=== PATIENT | female | born 1960 | race Caucasian/White ===

== ENCOUNTER 2018-03-02 06:23 | Inpatient (IN) | payer BC ==
[2018-03-02] MEDS: LACTATED RINGER'S 1,000 ML IV* (06:00)
[2018-03-02] MEDS ORDERED: EPHEDrine SULFATE 50 MG/5 ML SYG (07:00)
[2018-03-02] MEDS ORDERED: FENTAnyl 50 MCG/ML VIAL (10:00)
[2018-03-02] MEDS ORDERED: MIDAZOLAM 1 MG/ML 2 ML INJ ×2 (10:00)
[2018-03-02] MEDS ORDERED: PROPOFOL 100 ML ×2 (10:00→11:54)
[2018-03-02] MEDS ORDERED: BUPIVACAINE 0.75%/DEXT (SPINAL) 2 ML INJ (10:01)
[2018-03-02] MEDS: TRANEXAMIC ACID 1,000 MG in NS 100 ML PRE-OP X1 IVPB (11:30)
[2018-03-02] MEDS: CEFAZOLIN 2 GM/50 ML (PMX) 50 ML IVPB (11:30)
[2018-03-02] MEDS ORDERED: KETOROLAC 30 MG INJ (11:36)
[2018-03-02] MEDS ORDERED: ONDANSETRON 4 MG INJ (11:36)
[2018-03-02] MEDS ORDERED: DEXAMETHASONE 4 MG/ML 1 ML INJ (11:36)
[2018-03-02] MEDS ORDERED: CEFAZOLIN 1 GM INJ (11:36)
[2018-03-02] MEDS ORDERED: METOCLOPRAMIDE 10 MG INJ (11:36)
[2018-03-02] MEDS ORDERED: ACETAMINOPHEN 1000MG/100ML IV 100 ML (11:38)
[2018-03-02] MEDS ORDERED: PHENYLephrine (100 MCG/ML) 5ML SYG (11:48)
[2018-03-02] MEDS: TRANEXAMIC ACID 1,000 MG in NS 100 ML INTRA-OP X1 IVPB (12:00)
[2018-03-02] MEDS ORDERED: DIPHENHYDRAMINE 50 MG INJ IV (12:00)
[2018-03-02] MEDS ORDERED: NALOXONE (0.4 MG/ML) INJ IV (12:00)
[2018-03-02] MEDS ORDERED: SENNA/DOCUSATE NA (8.6MG/50MG) TAB PO (12:00)
[2018-03-02] MEDS ORDERED: BISACODYL 10 MG SUPP PR (12:00)
[2018-03-02] MEDS ORDERED: oxyCODONE 5 MG TAB PO ×3 (12:00)
[2018-03-02] MEDS ORDERED: BETHANECHOL 25 MG TAB PO (12:00)
[2018-03-02] MEDS ORDERED: ZOLPIDEM 5 MG TAB PO (12:00)
[2018-03-02] MEDS ORDERED: NACL 0.9% 3 ML SYG IV ×2 (12:00→16:00)
[2018-03-02] MEDS ORDERED: NA PHOSPHATE/BIPHOS 133 ML ENEMA PR (12:00)
[2018-03-02] MEDS ORDERED: MAGNESIUM HYDROXIDE 30ML CUP PO (12:00)
[2018-03-02] MEDS ORDERED: KETOROLAC 15 MG INJ IV (12:00)
[2018-03-02] MEDS: POLYMYXIN B 500000 UNIT INJ IRR (12:14)
[2018-03-02] MEDS: BACITRACIN 50000 UNITS INJ IRR (12:14)
[2018-03-02] MEDS: CEFAZOLIN 1 GM/50 ML (PMX) 50 ML IVPB ×2 (14:17→20:14)
[2018-03-02] MEDS: DOCUSATE SODIUM 100 MG CAP PO (14:17)
[2018-03-02] MEDS: ONDANSETRON 4 MG INJ IV ×3 (14:18→23:26)
[2018-03-02] MEDS: ASPIRIN (EC) 325 MG TAB PO (14:18)
[2018-03-02] MEDS: SOD CHLORIDE 0.9% 1,000 ML IV (14:19)
[2018-03-02] MEDS: GABAPENTIN 100 MG CAP PO (20:11)
[2018-03-03] MEDS: SOD CHLORIDE 0.9% 1,000 ML IV ×2 (00:12→12:32)
[2018-03-03] MEDS: CEFAZOLIN 1 GM/50 ML (PMX) 50 ML IVPB (04:26)
[2018-03-03 05:15] LABS: ADD MAN DIFF? NO
[2018-03-03 05:24] LABS: BASOPHILS % 0.1 % (0.0-2.0); HEMATOCRIT 23.6 % (37.0-47.0); HEMOGLOBIN 7.9 g/dl (12.0-16.0); LYMPHOCYTES # 1.1 10^3/ul (0.8-2.9); LYMPHOCYTES % 8.5 % (15.0-51.0); MEAN CORPUSCULAR HGB CONC 33.5 g/dl (32.0-37.0); MEAN CORPUSCULAR VOLUME 95.5 fl (82.0-101.0); MEAN PLATELET VOLUME 10.9 fl (7.4-10.4); MONOCYTE # 1.2 10^3/ul (0.3-0.9); MONOCYTES % 8.9 % (0.0-11.0); NEUTROPHIL # 10.7 10^3/ul (1.6-7.5); NEUTROPHILS % 82.3 % (39.0-77.0); PLATELET COUNT 189 10^3/UL (140-415); RED BLOOD COUNT 2.47 10^6/ul (4.20-5.40); RED CELL DISTRIBUTION WIDTH 12.5 % (11.5-14.5)
[2018-03-03 05:36] LABS: HEMOGLOBIN A1C 5.6 % (0-5.9)
[2018-03-03 05:37] LABS: ALANINE AMINOTRANSFERASE 36 IU/L (13-69); ALBUMIN 2.8 g/dl (3.3-4.9); ALBUMIN/GLOBULIN RATIO 1.12; ALKALINE PHOSPHATASE 51 IU/L (42-121); ANION GAP 8 (8-16); ASPARTATE AMINO TRANSFERASE 34 IU/L (15-46); BILIRUBIN,INDIRECT 0.2 mg/dl (0-1.1); BILIRUBIN,TOTAL 0.2 mg/dl (0.2-1.3); BLOOD UREA NITROGEN 15 mg/dl (7-20); CALCIUM 8.9 mg/dl (8.4-10.2); CARBON DIOXIDE 30 mmol/L (21-31); CHLORIDE 108 mmol/L (97-110); CHOL/HDL RATIO 2.1 RATIO; CHOLESTEROL 110 mg/dl (100-200); CREATININE 0.67 mg/dl (0.44-1.00); GLUCOSE 116 mg/dl (70-220); HDL CHOLESTEROL 51 mg/dl (37-92); LDL CHOLESTEROL,CALCULATED 51 mg/dl; MAGNESIUM 1.8 mg/dl (1.7-2.5); PHOSPHORUS 4.3 mg/dl (2.5-4.9); POTASSIUM 4.6 mmol/L (3.5-5.1); SODIUM 141 mmol/L (135-144); TOTAL PROTEIN 5.3 g/dl (6.1-8.1); TRIGLYCERIDES 38 mg/dl (0-149)
[2018-03-03 05:54] LABS: FREE THYROXINE INDEX (Calc) 2.64 ug/ml (0.65-3.89); T3 UPTAKE 36.2 % (23.5-40.5); T4 (THYROXINE) 7.3 ug/dl (5.5-11.0)
[2018-03-03] MEDS: ONDANSETRON 4 MG INJ IV (06:00)
[2018-03-03 06:07] LABS: THYROID STIMULATING HORMONE 0.269 MIU/L (0.465-4.680)
[2018-03-03] MEDS: FERROUS FUMARATE (SR) TAB PO (08:59)
[2018-03-03] MEDS: DOCUSATE SODIUM 100 MG CAP PO (08:59)
[2018-03-03] MEDS: PANTOPRAZOLE (EC) 40 MG TAB PO (09:00)
[2018-03-03] MEDS: CELECOXIB 100 MG CAP PO (09:00)
[2018-03-03] MEDS: GABAPENTIN 100 MG CAP PO (09:00)
[2018-03-03] MEDS: ASPIRIN (EC) 325 MG TAB PO (09:00)
[2018-03-03 12:18] LABS: IRON 42 ug/dl (35-150)
[2018-03-03 12:27] LABS: % IRON SATURATION 15 % SAT (22-52); TOTAL IRON BINDING CAPACITY 277 ug/dl (241-421)
== END 2018-03-03 14:14 | disposition home health service (06) | DRG 468 ==
LOC: REC 06:23 → MS1 14:41
PROC: 0SRB04A Replacement of Left Hip Joint with Ceramic on Polyethylene Synthetic Substitute, Uncemented, Open Approach (ICD-10-PCS; principal; 2018-03-02 10:00)
PROC: 0SPB0JZ Removal of Synthetic Substitute from Left Hip Joint, Open Approach (ICD-10-PCS; 2018-03-02 10:00)
DX: T84.89XA Other specified complication of internal orthopedic prosthetic devices, implants and grafts, initial encounter (principal); Z96.642 Presence of left artificial hip joint; R00.1 Bradycardia, unspecified
CPT/HCPCS: 73530; 80053; 80061; 83036; 83540; 83735; 84100; 84436; 84443; 84479; 85025; 86850; 86900; 86901; 87070; 87075; 87081; 88300; 88304; 97110; 97116; 97162; 97165